=== PATIENT | female | born 1960 | race Caucasian/White ===

== ENCOUNTER 2017-09-11 17:39 | Emergency (ER) | payer BC ==
[~2017-09-11] VITALS: Ht 157.5 cm; Wt 67.5 kg
[~2017-09-11 17:39] MED LIST: OMEPRAZOLE20 MG PO; PREDNISONE20 MG PO
[2017-09-11 18:29] LABS: HEMATOCRIT 40.5 % (36.0-46.0); HEMOGLOBIN 13.9 G/DL (11.9-15.5); MCH 30.2 PG (29.0-34.0); MCHC 34.3 G/DL (30.0-36.0); MCV 87.9 FL (83-99); PLATELET COUNT 375 K/uL (156-360); RBC DIS.WIDTH-CV 12.1 % (11.8-14.6); RBC DIS.WIDTH-SD 38.6 % (39-53); RED BLOOD COUNT 4.61 M/uL (3.80-5.20); WHITE BLOOD COUNT 7.4 K/uL (4.1-10.2)
[2017-09-11 18:47] LABS: CHLORIDE 101 mEq/L (99-109); POTASSIUM 3.8 mEq/L (3.7-5.4); SODIUM 138 mEq/L (136-147)
[2017-09-11 18:49] LABS: GLUCOSE 94 mg/dL (70-99)
[2017-09-11 18:53] LABS: CREATININE 0.7 mg/dL (0.6-1.3); GFR ESTIMATE (CALCULATED) > 59 mL/min/
[2017-09-11 18:54] LABS: UREA NITROGEN (BUN) 18 mg/dL (9-23)
[2017-09-11 19:55] LABS: APPEARANCE CLEAR ((CLEAR)); BILIRUBIN NEGATIVE; BLOOD SMALL; COLOR STRAW ((YELLOW)); GLUCOSE (STRIP) NEGATIVE; KETONES NEGATIVE; LEUKOCYTES NEGATIVE; NITRITE NEGATIVE; PROTEIN (STRIP) NEGATIVE; SPECIFIC GRAVITY 1.008 (1.000-1.030); UROBILINOGEN 0.2 MG/DL (0.2-1.0)
[2017-09-11 20:05] LABS: BACTERIA NONE SEEN /HPF; EPITHELIAL CELLS RARE /HPF; MUCUS TRACE /LPF; RED BLOOD CELLS 0-5 /HPF (0-5); UCUL ADDED? NO; WHITE BLOOD CELLS 0-5 /HPF (0-5)
[2017-09-11 20:22] LABS: ALBUMIN 4.6 g/dL (3.2-4.8)
[2017-09-11 20:25] LABS: TOTAL PROTEIN 8.5 g/dL (6.4-8.3)
[2017-09-11 20:27] LABS: TOTAL BILIRUBIN 0.6 mg/dL (0.0-1.0)
[2017-09-11 20:28] LABS: ALKALINE PHOSPHATASE 76 IU/L (3-129); CREATINE KINASE 110 IU/L (1-294)
[2017-09-11 20:30] LABS: AST (GOT) 36 IU/L (2-34)
[2017-09-11 20:31] LABS: ALT (GPT) 55 IU/L (3-49); DIRECT BILIRUBIN 0.2 mg/dL (0.0-0.3)
[2017-09-11 20:32] LABS: LIPASE 14 U/L (1.0-51.0)
[2017-09-11] MEDS ORDERED: NORCO 5/3251 TABLET PO (21:45)
[2017-09-11] MEDS ORDERED: MOTRIN600 MG PO (21:45)
[2017-09-11 22:02] VITALS: BP 132/87
== END 2017-09-11 22:03 | disposition home or self-care (01) ==
LOC: EME 17:39
DX: R10.12 Left upper quadrant pain (principal); R31.9 Hematuria, unspecified; N20.0 Calculus of kidney; N28.1 Cyst of kidney, acquired
CPT/HCPCS: 74176; 80048; 80076; 81003; 82550; 83690; 85027; 99281; 99283